=== PATIENT | male | born 1955 | race Hispanic/Latino ===

== ENCOUNTER 2016-07-07 07:43 | Emergency (ER) | payer OTHER ==
[2016-07-07 07:58] VITALS: RESP 18; O2SAT 98
--- NOTE | 2016-07-07 09:54 | C.PDOC ---
History Of Present Illness 60 y/o male presents to the ED with complains of pain and swelling to left upper arm. 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 Pt denies weakness, numbness, or any other complaints. Time Seen by Provider: 07/07/16 08:40 Chief Complaint (Nursing): Upper Extremity Problem/Injury History Per: Patient History/Exam Limitations: no limitations Onset/Duration Of Symptoms: Mins Current Symptoms Are (Timing): Still Present Quality: "Pain" Severity: Moderate Recent travel outside of the [place]: No Past Medical History Reviewed: Historical Data, Nursing Documentation, Vital Signs Vital Signs: Last Vital Signs Temp 98.4 F 07/07/16 11:22 Pulse 74 07/07/16 11:22 Resp 18 07/07/16 11:22 BP 154/92 H 07/07/16 11:22 Pulse Ox 98 07/07/16 11:40 Family History: States: Unknown Family Hx - Social History Hx Alcohol Use: No Hx Substance Use: No - Immunization History Hx Tetanus Toxoid Vaccination: No Hx Influenza Vaccination: No Hx Pneumococcal Vaccination: No Review Of Systems Except As Marked, All Systems Reviewed And Found Negative. Musculoskeletal: Positive for: Other (pain and swelling to left upper arm) Neurological: Negative for: Weakness, Numbness Physical Exam - Physical Exam Appears: Non-toxic, No Acute Distress Skin: Warm, Dry, No Rash Head: Atraumatic, Normacephalic Neck: Normal, Normal ROM, No Midline Cervical Tenderness, Supple Cardiovascular: Rhythm Regular Respiratory: Normal Breath Sounds, No Rales, No Rhonchi, No Wheezing Gastrointestinal/Abdominal: Normal Exam, Soft, No Tenderness Extremity: Normal ROM (Hand, wrist and elbow full ROM. Limited ROM at the left shoulder secondary to pain), Tenderness (Tenderness to left posterior arm, tricep region, mostly distal.), Capillary Refill (<2 seconds), No Deformity, No Swelling, Other (No eccymosis) Pulses: Left Radial: Normal Neurological/Psych: Oriented x3, Normal Speech, Normal Motor, Normal Sensation ED Course And Treatment O2 Sat by Pulse Oximetry: 98 (room air) Pulse Ox Interpretation: Normal - Other Rad XR humerus X-Ray: Viewed By Me, Read By Radiologist Interpretation: Accession No. : [id number]. Patient Name / ID : LUCY BARNES / [id number]. Exam Date : 07/07/2016 09:45:14 ( Approved ). Study Comment : Sex / Age : M / 60Y. 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 Dictator : Candace Frances MD. [employer] : Digital Sales Assistant : Candace Frances MD. Approver2 : Report Date : 07/07/2016 10:12:06. My Comment : . PROCEDURE: Radiographs of the left humerus. HISTORY: tricep pain. COMPARISON: None available. FINDINGS: BONES: No acute displaced fracture. No dislocation. SOFT TISSUES: Unremarkable. No evidence of radiopaque foreign body. OTHER FINDINGS: None. IMPRESSION: No acute displaced fracture, dislocation, or significant joint effusion identified. If symptoms persist, or if there is continued clinical concern, x-ray follow-up in 7-10 days should be considered. Progress Note: pt feeling much better with much better mobility of left arm. will d/c with ortho f/u Reevaluation Time: 11:34 Reassessment Condition: Improved Medical Decision Making Medical Decision Making: Plan: toradol, XR left humerus 1134 am pt feeling much better, d/c with sling., ortho f/u Disposition Counseled Patient/Family Regarding: Studies Performed, Diagnosis, Need For Followup - Disposition Referrals: Mable Underwood MD [Staff Provider] - Disposition: HOME/ ROUTINE Disposition Time: 11:37 Condition: IMPROVED Additional Instructions: Wear sling for comfort. Follow up with our orthopedist or with your own orthopedist. Ibuprofen for pain. Avoid heavy lifting. Instructions: Arm Pain (ED) Forms: General Discharge Instructions - Clinical Impression Clinical Impression: Muscle strain of left upper arm - PA / GOLF TECHNICIAN / Resident Statement MD/DO has reviewed & agrees with the documentation as recorded. - Scribe Statement The provider has reviewed the documentation as recorded by the [place] Haas All medical record entries made by the Shahnaz were at my direction and personally dictated by me. I have reviewed the chart and agree that the record accurately reflects my personal performance of the history, physical exam, medical decision making, and the department course for this patient. I have also personally directed, reviewed, and agree with the discharge instructions and disposition.
--- NOTE | 2016-07-07 10:55 | RAD ---
PROCEDURE: Radiographs of the left humerus. HISTORY: tricep pain COMPARISON: None available. FINDINGS: BONES: No acute displaced fracture. No dislocation. SOFT TISSUES: Unremarkable. No evidence of radiopaque foreign body. OTHER FINDINGS: None. IMPRESSION: No acute displaced fracture, dislocation, or significant joint effusion identified. If symptoms persist, or if there is continued clinical concern, x-ray follow-up in 7-10 days should be considered.
[2016-07-07 11:26] VITALS: BP 154/92; PULSE 74; TEMP 98.4
== END 2016-07-07 11:51 | disposition home or self-care (01) ==
LOC: C.ER 07:43
DX: S46.312A Strain of muscle, fascia and tendon of triceps, left arm, initial encounter (principal); X58.XXXA Exposure to other specified factors, initial encounter; Y92.89 Other specified places as the place of occurrence of the external cause; Y99.0 Civilian activity done for income or pay
CPT/HCPCS: 73060; 96372; 99285; J1885